=== PATIENT | male | born 1965 | race American Indian/Alaskan Native ===

== ENCOUNTER 2019-01-01 08:08 | Day surgery (SDC) | payer MEDICARE, BC ==
[2019-01-01] MEDS ORDERED: NACL 0.9% 500 ML 500 ML ONE (08:41)
[2019-01-01] MEDS ORDERED: NACL 0.9% 500 ML 500 ML IV SCH (09:00)
[2019-01-01 09:10] LABS: Basophils % (Auto) 0.8 % (0.0-1.8); Eosinophils # (Auto) 0.2 K/mm3 (0.0-0.4); Eosinophils % (Auto) 6.8 % (0.0-4.3); Hematocrit 35.6 % (35.5-45.6); Hemoglobin 11.3 gm/dl (11.8-15.2); Lymphocytes # (Auto) 0.6 K/mm3 (1.2-5.4); Mean Corpuscular HGB Conc 32 % (32-34); Mean Corpuscular Volume 81 fl (84-94); Monocytes # (Auto) 0.4 K/mm3 (0.0-0.8); Monocytes % (Auto) 15.9 % (0.0-7.3); Platelet Count 187 K/mm3 (140-440); Red Blood Count 4.42 M/mm3 (3.65-5.03); Red Cell Distribution Width 17.8 % (13.2-15.2)
[2019-01-01 09:34] LABS: Calcium 8.4 mg/dL (8.4-10.2)
[2019-01-01 09:35] LABS: INR 1.28 (0.87-1.13)
[2019-01-01] MEDS ORDERED: HEPARIN/NS 5000 UNIT/500ML(CATH LAB) 1,000 ML IR ONE (11:03)
[2019-01-01] MEDS ORDERED: HEPARIN 10,000 UNITS/10 ML ONE (11:03)
[2019-01-01] MEDS ORDERED: CALAN ONE (11:04)
[2019-01-01] MEDS ORDERED: NITROGLYCERIN SYRINGE 3 ML ONE (11:04)
[2019-01-01] MEDS ORDERED: PEPCID IV ONE (11:21)
[2019-01-01] MEDS ORDERED: BENADRYL ONE (11:22)
[2019-01-01] MEDS ORDERED: SOLU-Medrol ONE (11:22)
[2019-01-01] MEDS: VERSED ONE ×2 (11:40→11:51)
[2019-01-01] MEDS: XYLOCAINE 2% INFILTRATI ONE ×3 (11:41→11:54)
[2019-01-01] MEDS: SUBLIMAZE ONE ×2 (11:41→11:51)
--- NOTE | 2019-01-01 12:37 | Short Stay Summary ---
Short Stay Documentation Date of service: 01/01/19 - History H&P: obtained from office - Allergies and Medications Current Medications: Allergies Penicillins Allergy (Verified 01/01/19 08:37) Rash Home Medications Medication Instructions Recorded Confirmed Last Taken Type Allopurinol 100 mg PO DAILY 01/01/19 01/01/19 01/01/19 History 100mg Aspirin [Aspir-Low] 81 mg PO DAILY 01/01/19 01/01/19 01/01/19 History 81mg Furosemide [Lasix] 80 mg PO BID 01/01/19 01/01/19 01/01/19 History 80mg Labetalol HCl 200 mg PO BID 01/01/19 01/01/19 01/01/19 History 200mg Sodium Bicarbonate 650 mg PO BID 01/01/19 01/01/19 01/01/19 History 650mg cloNIDine [Catapres] 0.2 mg PO BID 01/01/19 01/01/19 01/01/19 History 0.2mg Active Medications Sodium Chloride (Nacl 0.9% 500 Ml) 500 mls @ 50 mls/hr IV DIRECT BEE Stop: 01/01/19 18:59 - Brief post op/procedure progress note Date of procedure: 01/01/19 Pre-op diagnosis: Post-op diagnosis: same Procedure: C - see dictated cath report Anesthesia: local Estimated blood loss: none Condition: stable - Disposition Condition at discharge: Good Disposition: [id number] TO HOME OR SELFCARE - Discharge Diagnoses (1) Severe aortic stenosis Status: Chronic (2) Mitral regurgitation Status: Chronic (3) Normal coronary arteries Status: Chronic (4) ESRD (end stage renal disease) on dialysis Status: Chronic (5) HTN (hypertension) Status: Chronic Short Stay Discharge Plan Diet: low salt, renal Wound: open to air, keep clean and dry, per your surgeon's advice Follow up with: NORM BAEZA MD [Primary Care Provider] - 7 Days ADRIANA BROWN MD [Staff Physician] - 7 Days
--- NOTE | 2019-01-01 14:39 | Cardiac Catherization Report ---
LEFT AND RIGHT HEART CATHETERIZATION CLINICAL INFORMATION: This is a 53-year-old gentleman with a history of hypertension, hyperlipidemia, end-stage renal disease, on hemodialysis. Echocardiogram showed severe aortic stenosis, also moderate mitral stenosis with mild LV dysfunction, is here for left and right heart catheterization. It was done under moderate sedation, start sedation time 11:40 a.m., finished at 12:26 p.m., total of 46 minutes under moderate sedation, 1 mg Versed, 50 mcg of fentanyl was given. Procedure was performed via the right common femoral artery, 6-[place] groin sheath sewn in, and right common femoral vein, 8-[place] groin sheath sewn in, placed in via sterile technique, local anesthesia. Left system engaged with a JL4 catheter. Left main is large and patent. LAD is a large caliber vessel, patent from proximally and distally. Diagonal 1 and diagonal 2 are small to medium caliber vessel that is patent. Circumflex is a large caliber vessel that is patent. OM1 and OM2 are medium caliber vessel, patent. RCA engaged with JR4, is a large dominant vessel. PDA and PLV are medium caliber vessel that is patent. It was able to cross the aortic valve with an AR catheter and a Glidewire and the patient has mild LV dysfunction, EF 40-45%, mild LV dilatation. LVEDP of 31 mmHg. LV was 219 mmHg with an LVEDP of 31 mmHg, aortic was 153/96 with a mean gradient of 49.4 mmHg and a [id number] gradient of 66 when area calculated 0.87. So, the pigtail catheter was placed in and left in the LV and right heart catheterization was done with a [place] catheter that was navigated upwards and the following wedge was 41 mmHg with an LV of 213/16, we had a mitral gradient of 21 mm and a calculated valve area of 1.66. The patient's PA was 86/36 mmHg, RV was 85/6 mmHg. RA was 60 mmHg. PA saturation was 62%, RV saturation 60%, RA sat 64 with an aortic sat 93. The patient's PVR is 297 D/s. The patient's cardiac output is 6.33, index was 2.99. The patient's aortic valve mean gradient was 50 mmHg and mitral valve mean gradient was 13.3. There was no step or no step down. A [place] catheter pullback on the aortic valve showed no gradient with a Satya catheter. So, 5-[place] catheters were taken over Guidewire. A 6-[place] arterial sheath was removed. An 8-[place] venous sheath was removed. Manual pressure held. No hematoma, no bleeding. SUMMARY: 1. Normal coronaries, left main patent, LAD patent, circ patent, RCA patent. 2. Mild LV dysfunction with severe aortic stenosis with a mean gradient of 49.4 mmHg with a valve area 0.87, [id number] 66. The patient has [id number] aortic stenosis with a mean gradient 13 mmHg with a valve area calculated 2.24 with cardiac output of 6.33 and index of 2.99. The patient has severe pulmonary hypertension with a wedge of 41 mmHg. PA was 86/35 mmHg, RV was 85/6 mmHg, RA was 60 mmHg. No step up or no step down. The patient will have hemodialysis tomorrow and the patient will follow up for outpatient CT surgery evaluation. Discussed this in detail with the patient and patient's family. JOB# [id number] MAITE/MICHELE
[2019-01-01 16:37] VITALS: BP 141/63
== END 2019-01-01 17:45 | disposition home or self-care (01) ==
LOC: CATHLABREC 08:08
PROVIDERS: ATTEND Internal Medicine
DX: I05.0 Rheumatic mitral stenosis (principal); I35.0 Nonrheumatic aortic (valve) stenosis; I12.0 Hypertensive chronic kidney disease with stage 5 chronic kidney disease or end stage renal disease; N18.6 End stage renal disease; E78.5 Hyperlipidemia, unspecified; I27.20 Pulmonary hypertension, unspecified; D64.9 Anemia, unspecified; Z88.0 Allergy status to penicillin; Z79.899 Other long term (current) drug therapy; Z79.82 Long term (current) use of aspirin; Z98.890 Other specified postprocedural states; Z99.2 Dependence on renal dialysis
CPT/HCPCS: 36415; 80048; 85025; 85610; 93005; 93010; 93460; 99156; 99157; C1751; C1769; C1894; J1200; J1644; J2250; J2930; J3010; J7040; Q9967